=== PATIENT | female | born 1960 | race Caucasian/White ===

== ENCOUNTER 2016-07-29 15:29 | Inpatient (IN) | payer OTHER ==
[2016-07-29 19:22] VITALS: BMI 30.1
[2016-07-29] MEDS: Ascorbic Acid 500 mg Chewable Tablet PO SCH (20:35)
[2016-07-29] MEDS: ALPRAZolam 0.5 MG TAB PO SCH (20:35)
[2016-07-29] MEDS: metroNIDAZOLE 250 MG TAB PO SCH (20:35)
[2016-07-29] MEDS: Cefepime 2 GM in Sodium Chloride 0.9% 100 ML IVPB SCH (20:36)
[2016-07-29] MEDS: Enoxaparin Sodium 40 MG/0.4 ML SYRINGE SC SCH (20:51)
[2016-07-29] MEDS: Albuterol Sulfate 2.5 mg/3 ml Neb NEB SCH (21:40)
[2016-07-29] MEDS: Morphine Sulfate 2 MG/ML SYRINGE SLOW IVP PRN (21:41)
[2016-07-30] MEDS ORDERED: FLU VACC QS2016-17 36MOS UP/PF 0.5 ML SYRINGE IM ONE (09:00)
[2016-07-30] MEDS: Ferrous Sulfate 325 MG TAB PO SCH ×2 (10:20→16:45)
[2016-07-30] MEDS: metroNIDAZOLE 250 MG TAB PO SCH ×3 (10:21→21:03)
[2016-07-30] MEDS: Aripiprazole 10 MG TAB PO SCH (10:22)
[2016-07-30] MEDS: Multivit, Therapeutic 1 TAB PO SCH (10:22)
[2016-07-30] MEDS: ALPRAZolam 0.5 MG TAB PO SCH ×3 (10:24→21:04)
[2016-07-30] MEDS: Ascorbic Acid 500 mg Chewable Tablet PO SCH ×2 (10:25→21:04)
[2016-07-30] MEDS: Docusate (Surfak) 240 MG CAP PO SCH (10:27)
[2016-07-30] MEDS: Cefepime 2 GM in Sodium Chloride 0.9% 100 ML IVPB SCH ×2 (10:29→21:12)
[2016-07-30] MEDS: Albuterol Sulfate 2.5 mg/3 ml Neb NEB SCH ×4 (10:42→21:13)
[2016-07-30] MEDS: Morphine Sulfate 2 MG/ML SYRINGE SLOW IVP PRN (14:09)
[2016-07-30] MEDS: Enoxaparin Sodium 40 MG/0.4 ML SYRINGE SC SCH (21:12)
[2016-07-31] MEDS: Morphine Sulfate 2 MG/ML SYRINGE SLOW IVP PRN ×3 (00:03→13:52)
--- NOTE | 2016-07-31 03:00 | HP ---
CHIEF COMPLAINT: Wound VAC and physical and occupational therapy. HISTORY OF PRESENT ILLNESS: Ms. Mendez is a 56-year-old female who was transferred here for skilled occupational and physical therapy as well as wound VAC and wound care treatment following a hospital admission to [facility] from 06/11/2016 through 07/29/2016. Her admission diagnosis was colon cancer and she underwent a left colon resection by Dr. Cedillo early in her hospital course. Postoperatively, she had an anastomotic leak requiring a colostomy. The colostomy later became necrotic requiring a revision and her wound left open, treated with a wound VAC. At the time of her discharge, she was tolerating a regular diet and ambulating with minimal discomfort. Her vital signs were stable and she was afebrile. She had a recent increase in her white blood cell count and Dr. Carvalho with Infectious Disease felt that her leukocytosis improved presumed as consequence to broadened antibiotic therapy. He believed it was possible they were treating an early hospital acquired pneumonia, although she did not have any signs of respiratory symptoms. She has a PICC line in place that they are using for blood draws. She complains of pain with dressing changes. She has had some intermittent anxiety as expected and had an increase of that with her transfer to the new facility. Her wound care nurse at [facility] came over today and instructed Wound Care team regarding her wound VAC therapy. Since her transfer, she has been stable with the exception of a slight tachycardia in the low 100s. This was apparently present at this facility prior to her transfer as well. PAST MEDICAL HISTORY: 1. Colon cancer. 2. Depression. 3. Anxiety. 4. Anemia. 5. Elevated alpha fetoprotein. 6. Leukocytosis. 7. Right lobe liver mass measuring 14.5 cm noted on ultrasound in April 2016. 8. Acute cystitis. 9. Panic attacks. 10. History of wound infection after surgery. PAST SURGICAL HISTORY: 1. Partial colectomy with anastomosis 06/14/2016. 2. Exploratory laparotomy-celiotomy 06/22/2016. 3. Complicated colostomy revision on 06/28/2016. 4. Appendectomy. 5. Total abdominal hysterectomy with bilateral salpingo-oophorectomy. 6. Laparoscopic cholecystectomy 05/18/2016. 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 She has several children and grandchildren. Her mother is a retired nurse. Denies drug use or tobacco use. She did used alcohol prior to her admission. FAMILY HISTORY: Father of colon cancer at age 70. Maternal aunt with metastatic breast cancer. Grandmother had breast cancer. ALLERGIES: No known drug allergies. MEDICATIONS PRIOR TO ADMISSION: At [place] \T\ [facility]: 1. Abilify 15 mg daily. 2. Vitamin C 500 mg daily. 3. Ferrous sulfate 325 mg twice daily. 4. Effexor XR 150 mg daily. TRANSFER MEDICATIONS: 1. Ventolin 2.5 mg nebulized q.i.d. 2. Xanax 0.25 mg p.o. t.i.d. 3. Abilify 15 mg p.o. daily. 4. Vitamin C 500 mg p.o. b.i.d. 5. Cefepime 2 grams IV q.12 hours through 08/02/2016. 6. Surfak 240 mg daily. 7. Lovenox 40 mg subcu at bedtime. 8. Feosol 325 mg p.o. b.i.d. 9. Flagyl 500 mg p.o. t.i.d. through 08/02/2016. 10. Morphine sulfate 2 mg slow IV push q.3 hours p.r.n. 11. Multivitamin 1 p.o. daily. 12. Pantoprazole 40 mg p.o. daily. 13. Effexor XR 150 mg p.o. daily. REVIEW OF SYSTEMS: GENERAL: The patient denies fever. Positive fatigue. HEENT: Denies nasal congestion, sore throat, ear pain or problems with her vision. CARDIOVASCULAR: Denies chest pain, orthopnea, PND, palpitations. RESPIRATORY: Denies shortness of breath or cough. ABDOMEN: The patient with normal stool output per her colostomy. No melena or hematochezia noted. GASTROINTESTINAL: The patient is without nausea or vomiting. GENITOURINARY: Reports good urine output. Denies dysuria or gross hematuria. LYMPHATIC: Denies swelling. HEMATOLOGIC: Denies bleeding or bruising. PHYSICAL EXAMINATION: VITAL SIGNS: Temperature 98.3, heart rate 117, respirations 20, O2 sat 93% on 2 liters, blood pressure 119/63. GENERAL: Well-developed, well-nourished female in no acute distress, alert and oriented x3. HEENT: Normocephalic, atraumatic. Pupils equal, round, and reactive to light and accommodation. Extraocular muscles intact. ENT: Nares are patent without discharge. Tongue protrudes on midline. NECK: Supple without lymphadenopathy, thyromegaly, JVD, or bruit. HEART: Tachycardic, normal S1, S2. No murmurs, clicks, rubs, or gallops. LUNGS: Clear to auscultation with good air entry bilaterally. No crackles or wheezes. ABDOMEN: Hypoactive bowel sounds in all 4 quadrants, midline vertical wound with wound VAC in place with abdominal binding sutures present to the left upper and lower quadrant with the colostomy to the right lower quadrant. There are wound binders that are external with lacing in place. There is no erythema or induration surrounding the wound that is readily visible. Tenderness to palpation is appropriate. EXTREMITIES: No cyanosis, clubbing, or edema. NEUROLOGIC: Cranial nerves II-XII grossly intact. No focal deficits. ASSESSMENT AND PLAN: 1. Colon cancer, status post partial colectomy with anastomotic leak requiring colostomy, subsequent revision, and wound infection. The patient will be provided with wound care and wound VAC treatment per protocol. 2. Physical deconditioning. Physical Therapy and Occupational Therapy will evaluate and treat. 3. Leukocytosis. This may have been early hospital acquired pneumonia versus wound infection with recent increase in leukocytosis. We will continue the Flagyl on cefepime per Dr. Carvalho with Infectious Disease recommendations. 4. Tachycardia. At present, this is likely due to anxiety and discomfort. Her blood pressure is normal, her rhythm is regular, and she is afebrile. She appears to be euvolemic on exam. 5. Anxiety/depression. The patient will be continued on her regimen of Abilify , Xanax t.i.d., and venlafaxine ER. 6. Acute on chronic blood loss anemia. The patient will be continued on her ferrous sulfate b.i.d. with occasional monitoring of CBC p.r.n. 7. Prophylaxis, the patient will be continued on Lovenox 40 mg subcu daily and Protonix 40 mg p.o. daily. 8. The patient is a full resuscitation status. [facility]
[2016-07-31] MEDS: Ferrous Sulfate 325 MG TAB PO SCH ×2 (09:02→17:34)
[2016-07-31] MEDS: ALPRAZolam 0.5 MG TAB PO SCH ×3 (09:03→20:46)
[2016-07-31] MEDS: Ascorbic Acid 500 mg Chewable Tablet PO SCH ×2 (09:04→20:46)
[2016-07-31] MEDS: metroNIDAZOLE 250 MG TAB PO SCH ×3 (09:05→20:46)
[2016-07-31] MEDS: Multivit, Therapeutic 1 TAB PO SCH (09:05)
[2016-07-31] MEDS: Albuterol Sulfate 2.5 mg/3 ml Neb NEB SCH ×4 (09:16→20:54)
[2016-07-31] MEDS: Docusate (Surfak) 240 MG CAP PO SCH (09:16)
[2016-07-31] MEDS: Aripiprazole 10 MG TAB PO SCH (09:20)
[2016-07-31] MEDS: Cefepime 2 GM in Sodium Chloride 0.9% 100 ML IVPB SCH ×2 (09:21→20:53)
[2016-07-31] MEDS: Enoxaparin Sodium 40 MG/0.4 ML SYRINGE SC SCH (20:59)
[2016-08-01] MEDS: Ferrous Sulfate 325 MG TAB PO SCH ×2 (08:10→17:27)
[2016-08-01] MEDS: metroNIDAZOLE 250 MG TAB PO SCH ×3 (09:20→20:10)
[2016-08-01] MEDS: ALPRAZolam 0.5 MG TAB PO SCH (09:24)
[2016-08-01] MEDS: Multivit, Therapeutic 1 TAB PO SCH (09:24)
[2016-08-01] MEDS: Ascorbic Acid 500 mg Chewable Tablet PO SCH ×2 (09:25→20:11)
[2016-08-01] MEDS: Albuterol Sulfate 2.5 mg/3 ml Neb NEB SCH ×4 (09:26→20:23)
[2016-08-01] MEDS: Aripiprazole 10 MG TAB PO SCH (09:30)
[2016-08-01] MEDS: Docusate (Surfak) 240 MG CAP PO SCH (09:32)
[2016-08-01] MEDS: Cefepime 2 GM in Sodium Chloride 0.9% 100 ML IVPB SCH ×2 (09:48→20:26)
[2016-08-01] MEDS ORDERED: ALPRAZolam 0.5 MG TAB PO PRN (12:20)
[2016-08-01] MEDS: Acetaminophen 325 MG TAB PO PRN (20:10)
[2016-08-01] MEDS: Enoxaparin Sodium 40 MG/0.4 ML SYRINGE SC SCH (20:12)
[2016-08-01] MEDS: Morphine Sulfate 2 MG/ML SYRINGE SLOW IVP PRN (21:06)
[2016-08-02 08:50] LABS: Hemoglobin 10.1 g/dL (12.0-16.0); Mean Corpuscular HGB CONC 31.6 g/dL (32.0-36.0); Mean Corpuscular Hemoglobin 27.5 pg (27.0-31.0); Mean Corpuscular Volume 87.2 fl (81.0-99.0); Mean Platelet Volume 5.7 fL (7.4-10.4); Platelet Count 243 thou/uL (130-400); RBC Distribution Width 22.6 % (11.5-14.5); Red Blood Cell (RBC) Count 3.67 mill/uL (4.20-5.40); White Blood Cell (WBC) Count 44.1 thou/uL (4.8-10.8)
[2016-08-02 08:52] LABS: Anion Gap 12 mmol/L (10-20); BUN (Urea Nitrogen) 9 mg/dL (9.8-20.1); Calc. Creatinine Clearance 157 mL/min (70-130); Calcium 7.3 mg/dL (7.8-10.44); Carbon Dioxide 17 mmol/L (22-29); Chloride 107 mmol/L (98-107); Estimated GFR-MDRD Greater than 90; Glucose 87 mg/dL (70-105); Potassium 4.1 mmol/L (3.5-5.1); Sodium 132 mmol/L (136-145)
[2016-08-02 09:13] LABS: Anisocytosis SLIGHT = 6-15 cells (100X) (0-5/hpf); Band 15 % (5-11); Eosinophils 31 % (0-10); Lymphocytes 11 % (21-51); MDiff Complete? YES; Monocytes 3 % (0-10); Neutrophil 40 % (42-75); PLT Morphology Comment Appears Adequate
[2016-08-02] MEDS: Ascorbic Acid 500 mg Chewable Tablet PO SCH ×2 (09:20→20:55)
[2016-08-02] MEDS: Multivit, Therapeutic 1 TAB PO SCH (09:21)
[2016-08-02] MEDS: metroNIDAZOLE 250 MG TAB PO SCH ×3 (09:21→20:52)
[2016-08-02] MEDS: Ferrous Sulfate 325 MG TAB PO SCH ×2 (09:21→18:00)
[2016-08-02] MEDS: Aripiprazole 10 MG TAB PO SCH (09:22)
[2016-08-02] MEDS: Cefepime 2 GM in Sodium Chloride 0.9% 100 ML IVPB SCH ×2 (09:22→20:52)
[2016-08-02] MEDS: Docusate (Surfak) 240 MG CAP PO SCH (09:23)
[2016-08-02] MEDS: Albuterol Sulfate 2.5 mg/3 ml Neb NEB SCH ×4 (09:26→20:53)
[2016-08-02] MEDS: Morphine Sulfate 2 MG/ML SYRINGE SLOW IVP PRN ×2 (10:21→13:30)
[2016-08-02] MEDS: Ondansetron ODT 4 MG TAB PO PRN (12:27)
[2016-08-02] MEDS: ALPRAZolam 0.5 MG TAB PO PRN (15:54)
[2016-08-02] MEDS: Enoxaparin Sodium 40 MG/0.4 ML SYRINGE SC SCH (20:55)
[2016-08-03 06:21] LABS: Hemoglobin 9.8 g/dL (12.0-16.0); Mean Corpuscular HGB CONC 32.4 g/dL (32.0-36.0); Mean Corpuscular Hemoglobin 27.9 pg (27.0-31.0); Mean Corpuscular Volume 86.3 fl (81.0-99.0); Platelet Count 214 thou/uL (130-400); RBC Distribution Width 23.2 % (11.5-14.5); Red Blood Cell (RBC) Count 3.52 mill/uL (4.20-5.40); White Blood Cell (WBC) Count 44.9 thou/uL (4.8-10.8)
[2016-08-03 06:46] LABS: Anisocytosis MODERATE=16-30 cells (100X) (0-5/hpf); Band 9 % (5-11); Eosinophils 34 % (0-10); Lymphocytes 7 % (21-51); MDiff Complete? YES; Monocytes 7 % (0-10); Neutrophil 42 % (42-75); PLT Morphology Comment Appears Adequate
[2016-08-03] MEDS: Ferrous Sulfate 325 MG TAB PO SCH ×2 (09:09→17:17)
[2016-08-03] MEDS: Docusate (Surfak) 240 MG CAP PO SCH (09:09)
[2016-08-03] MEDS: Ascorbic Acid 500 mg Chewable Tablet PO SCH ×2 (09:09→20:37)
[2016-08-03] MEDS: Aripiprazole 10 MG TAB PO SCH (09:09)
[2016-08-03] MEDS: Multivit, Therapeutic 1 TAB PO SCH (09:09)
[2016-08-03] MEDS ORDERED: HYDROcodone/Acetaminophen 5/325 mg Tablet PO PRN (09:13)
[2016-08-03] MEDS ORDERED: HYDROcodone/Acetaminophen 10/325 mg Tablet PO PRN (09:13)
[2016-08-03] MEDS: Albuterol Sulfate 2.5 mg/3 ml Neb NEB SCH ×4 (09:14→20:43)
[2016-08-03] MEDS: Acetaminophen 325 MG TAB PO PRN (09:22)
[2016-08-03] MEDS: ALPRAZolam 0.5 MG TAB PO PRN (20:37)
[2016-08-03] MEDS: Enoxaparin Sodium 40 MG/0.4 ML SYRINGE SC SCH (20:40)
[2016-08-04] MEDS: Ferrous Sulfate 325 MG TAB PO SCH ×2 (08:53→18:16)
[2016-08-04] MEDS: Docusate (Surfak) 240 MG CAP PO SCH (08:53)
[2016-08-04] MEDS: Aripiprazole 10 MG TAB PO SCH (08:54)
[2016-08-04] MEDS: Ascorbic Acid 500 mg Chewable Tablet PO SCH ×2 (08:54→21:10)
[2016-08-04] MEDS: Multivit, Therapeutic 1 TAB PO SCH (08:54)
[2016-08-04] MEDS: Albuterol Sulfate 2.5 mg/3 ml Neb NEB SCH ×4 (09:06→21:10)
[2016-08-04] MEDS: Ondansetron ODT 4 MG TAB PO PRN (09:30)
[2016-08-04] MEDS: ALPRAZolam 0.5 MG TAB PO PRN (09:47)
[2016-08-04] MEDS: Morphine Sulfate 2 MG/ML SYRINGE SLOW IVP PRN (13:03)
[2016-08-04] MEDS ORDERED: Zolpidem Tartrate 5 MG TAB PO SCH (21:00)
[2016-08-04] MEDS: Enoxaparin Sodium 40 MG/0.4 ML SYRINGE SC SCH (21:10)
[2016-08-05 06:42] LABS: Mean Corpuscular HGB CONC 31.7 g/dL (32.0-36.0); Mean Corpuscular Hemoglobin 27.9 pg (27.0-31.0); Mean Corpuscular Volume 87.9 fl (81.0-99.0); Mean Platelet Volume 6.1 fL (7.4-10.4); Platelet Count 161 thou/uL (130-400); RBC Distribution Width 23.1 % (11.5-14.5); Red Blood Cell (RBC) Count 3.58 mill/uL (4.20-5.40); White Blood Cell (WBC) Count 47.7 thou/uL (4.8-10.8)
[2016-08-05 06:45] LABS: MDiff Complete? YES; Manual Diff?? YES; Neutrophil 41 % (42-75)
[2016-08-05 06:46] LABS: Anisocytosis MARKED = >30 cells (100X) (0-5/hpf); Band 14 % (5-11); Delete Auto Diff?? YES; Eosinophils 23 % (0-10); Lymphocytes 12 % (21-51); Metamyelocyte 1 % (0-0); Monocytes 6 % (0-10); Myelocyte 1 % (0-0); Reflex for Review?? YES
[2016-08-05 06:47] LABS: Hypochromia SLIGHT = 6-15 cells (100X) (0-5/hpf); Ovalocytes SLIGHT = 2-5 cells (100X) (0-1/hpf); Polychromasia SLIGHT = 2-3 cells (100X) (0-2/hpf); Schistocytes SLIGHT = 2-5 cells (100X) (0-1/hpf); Target Cells SLIGHT = 2-5 cells (100X) (0-1/hpf)
[2016-08-05 06:49] LABS: PLT Morphology Comment Appears Adequate
[2016-08-05] MEDS ORDERED: Meropenem 1 GM in Sodium Chloride 0.9% 100 ML IVPB SCH (10:00)
[2016-08-05] MEDS: Docusate (Surfak) 240 MG CAP PO SCH (10:53)
[2016-08-05] MEDS: Albuterol Sulfate 2.5 mg/3 ml Neb NEB SCH ×4 (10:53→20:49)
[2016-08-05] MEDS: Ascorbic Acid 500 mg Chewable Tablet PO SCH ×2 (10:53→20:52)
[2016-08-05] MEDS: Multivit, Therapeutic 1 TAB PO SCH (10:53)
[2016-08-05] MEDS: Ferrous Sulfate 325 MG TAB PO SCH ×2 (10:53→17:43)
[2016-08-05] MEDS: Aripiprazole 10 MG TAB PO SCH (10:55)
[2016-08-05] MEDS ORDERED: Sodium Chloride 0.9% 500 ML IV SCH (13:30)
[2016-08-05] MEDS: Meropenem 1 GM in Sodium Chloride 0.9% 100 ML IVPB SCH ×2 (15:00→20:50)
[2016-08-05] MEDS: Enoxaparin Sodium 40 MG/0.4 ML SYRINGE SC SCH (20:52)
[2016-08-05] MEDS ORDERED: Zolpidem Tartrate 5 MG TAB PO SCH (21:00)
[2016-08-06] MEDS: Meropenem 1 GM in Sodium Chloride 0.9% 100 ML IVPB SCH (05:12)
[2016-08-06 05:25] LABS: ALT (SGPT) 15 U/L (0-55); AST (SGOT) 37 U/L (5-34); Albumin 1.8 g/dL (3.5-5.0); Alkaline Phosphatase 780 U/L (40-150); Anion Gap 8 mmol/L (10-20); BUN (Urea Nitrogen) 34 mg/dL (9.8-20.1); Bilirubin, Total 6.2 mg/dL (0.2-1.2); Calc. Creatinine Clearance 115 mL/min (70-130); Calcium 7.5 mg/dL (7.8-10.44); Carbon Dioxide 19 mmol/L (22-29); Chloride 104 mmol/L (98-107); Estimated GFR-MDRD 71; Globulin 3.6 g/dL (2.4-3.5); Glucose 92 mg/dL (70-105); Potassium 4.2 mmol/L (3.5-5.1); Protein, Total 5.4 g/dL (6.0-8.3); Sodium 127 mmol/L (136-145)
[2016-08-06 06:11] VITALS: BP 120/72
[2016-08-06 06:54] LABS: #Basophils 0.6 thou/uL (0.0-0.2); #Eosinphils 13.9 thou/uL (0.0-0.7); #Monocytes 2.8 thou/uL (0.11-0.59); #Neutrophils 33.8 thou/uL (1.40-6.50); %Basophils 1.2 % (0.0-1.0); %Eosinophils 24.7 % (0.0-10.0); %Lymphocytes 8.9 % (21.0-51.0); %Neutrophils 60.3 % (42.0-75.0); Hemoglobin 9.9 g/dL (12.0-16.0); Mean Corpuscular HGB CONC 30.5 g/dL (32.0-36.0); Mean Corpuscular Hemoglobin 27.1 pg (27.0-31.0); Mean Platelet Volume 6.1 fL (7.4-10.4); Platelet Count 140 thou/uL (130-400); RBC Distribution Width 22.8 % (11.5-14.5); Red Blood Cell (RBC) Count 3.66 mill/uL (4.20-5.40); White Blood Cell (WBC) Count 56.1 thou/uL (4.8-10.8)
[2016-08-06 07:14] LABS: Anisocytosis MARKED = >30 cells (100X) (0-5/hpf); Band 14 % (5-11); Eosinophils 20 % (0-10); Hypochromia SLIGHT = 6-15 cells (100X) (0-5/hpf); Lymphocytes 10 % (21-51); MDiff Complete? YES; Metamyelocyte 2 % (0-0); Monocytes 5 % (0-10); Myelocyte 4 % (0-0); Neutrophil 42 % (42-75); Nucleated RBC 1 % (0); PLT Morphology Comment Appears Adequate; Polychromasia SLIGHT = 2-3 cells (100X) (0-2/hpf); Schistocytes SLIGHT = 2-5 cells (100X) (0-1/hpf); Target Cells SLIGHT = 2-5 cells (100X) (0-1/hpf); Tear Drops SLIGHT = 2-5 cells (100X) (0-1/hpf)
[2016-08-06] MEDS: Ascorbic Acid 500 mg Chewable Tablet PO SCH (09:26)
[2016-08-06] MEDS: Ferrous Sulfate 325 MG TAB PO SCH (09:26)
[2016-08-06] MEDS: Docusate (Surfak) 240 MG CAP PO SCH (09:27)
[2016-08-06] MEDS: Multivit, Therapeutic 1 TAB PO SCH (09:27)
[2016-08-06] MEDS: Aripiprazole 10 MG TAB PO SCH (09:29)
[2016-08-06] MEDS: Morphine Sulfate 2 MG/ML SYRINGE SLOW IVP PRN (09:33)
[2016-08-06] MEDS: Albuterol Sulfate 2.5 mg/3 ml Neb NEB SCH (09:35)
[2016-08-06 10:42] VITALS: TEMP 97.6
[2016-08-06] MEDS: Ondansetron ODT 4 MG TAB PO PRN (11:57)
== END 2016-08-06 12:00 | disposition short-term general hospital (02) | DRG 949 ==
LOC: BURMED 18:25 → UNDOADMIN 18:58 → BURMED 18:58
PROVIDERS: ADMIT Family Medicine; ATTEND Family Medicine
DX: T81.4XXD Infection following a procedure, subsequent encounter (principal); C18.9 Malignant neoplasm of colon, unspecified; C79.9 Secondary malignant neoplasm of unspecified site; D62 Acute posthemorrhagic anemia; R17 Unspecified jaundice; Z93.3 Colostomy status; Z90.49 Acquired absence of other specified parts of digestive tract; F41.9 Anxiety disorder, unspecified; E80.6 Other disorders of bilirubin metabolism; Z79.2 Long term (current) use of antibiotics
CPT/HCPCS: 36415; 80048; 80053; 85025; 85060; 94640; 97602; A4216; G8978-GP-CK; G8979-GP-CI; G8987-GO-CM; G8988-GO-CI; G8990-GP-CH; G8991-GP-CH; J0692; J1642; J1650; J2185; J2270; J7050; J7611; Q0162